=== PATIENT | male | born 1990 | race American Indian/Alaskan Native ===

== ENCOUNTER 2016-03-08 08:52 | Emergency (ER) | payer SELFPAY ==
[2016-03-08 09:08] VITALS: BP 147/94
== END 2016-03-08 11:38 | disposition left against medical advice (07) ==
LOC: ED 08:52
DX: R05 Cough (principal); R06.02 Shortness of breath; Z53.21 Procedure and treatment not carried out due to patient leaving prior to being seen by health care provider